=== PATIENT | female | born 1980 | race Caucasian/White ===

== ENCOUNTER → 2020-01-25 | Outpatient (CLI) | payer OTHER, SELFPAY ==
[2013-09-04 13:55] VITALS: BMI 29.8
--- NOTE | 2020-01-25 13:30 | BRBX_PTH ---
PATIENT: ALDA BUTLER LOC: [facility] U#:[id number] AGE/SX: 39/F ROOM: RE01/25/[address]: Dr. Brannon Post MD : 1980 BED: DIS: 01/25/2020 SPEC #: [id number] RECD: 01/25/20 16:12 STATUS: ROQUE GERHARD #: [id number] WILLY: 01/25/20 13:[address]: Brannon Post DEPT: SURGICAL PATHOLOGY RECD BY: Steven Fenton ENTERED: 01/28/20 06:59 SP TYPE: BREAST BX OTHR DR: Luly Funes, STUDY ABROAD COORDINATOR-Loren Tissues: Left breast, NOS Procedures: Surgery Specimen Level IV HEADER OPERATION: Ultrasound-guided left breast needle core biopsy PRE-OP DIAGNOSIS: Abnormal mammogram TISSUE SUBMITTED: Left breast biopsy ISCHEMIC TIME: 3 minutes FIXATION TIME: 78 hours MICROSCOPIC DIAGNOSIS Left breast, ultrasound-guided core biopsy: Hyalinized fibroadenoma with focal fibrocystic changes and mild intraductal hyperplasia without atypia. Negative for malignancy. See comment. DWAYNE:seth 01/29/20 COMMENT Correlation with clinical, radiologic findings and appropriate follow up are necessary. MICROSCOPIC DESCRIPTION Slides are reviewed. GROSS DESCRIPTION Received is one container labeled with the patient's name and not further designated. The specimen consists of multiple elongated fragments of amaro-yellow fibroadipose tissue that in aggregate measure 1 x 0.5 x 0.1 cm. The entire specimen is submitted in one cassette. / DWAYNE:seth 01/28/20 TC:1 CPT: 45352
== END | disposition home or self-care (01) ==
LOC: LABSPEC 16:15
PROVIDERS: Referring Provider Surgery; Visit Provider Surgery
DX: D24.2 Benign neoplasm of left breast (principal); N60.12 Diffuse cystic mastopathy of left breast; N62 Hypertrophy of breast
CPT/HCPCS: 88305